=== PATIENT | male | born 1970 | race Caucasian/White ===

== ENCOUNTER 2022-12-19 10:17 | Outpatient (CLI) | payer OTHER, SELFPAY ==
--- NOTE | 2022-12-21 12:29 | WPDHOLTEREM ---
Holter/Event Monitor Holter/Event Monitor Date of procedure: 12/19/22 Holter/Event Procedure: 24 Hr Holter Monitor Indications: Palpitations Conclusion: 1. 24 hour holter monitor on 12/19/22. 2. Underlying rhythm is sinus rhythm. HR range 51-124 bpm; average HR 73 bpm. 3. There are 6,622 premature supraventricular complexes, 7 supraventricular couplets, 139 supraventricular trigeminy. No supraventricular tachycardia. 4. There are 27 premature ventricular complexes and 3 ventricular trigeminy. No ventricular tachycardia. 5. No sinoatrial or atrioventricular blocks. No significant pauses greater than 2 seconds. 6. Patient reports symptoms of pounding heart which demonstrates sinus rhythm, HR range 65-110 bpm with 3 out of 5 times with PAC's.
== END 2022-12-19 10:18 | disposition home or self-care (01) ==
LOC: ANHLAB 10:19
PROVIDERS: Visit Provider Nurse Practitioner Family
DX: R00.2 Palpitations (principal)
CPT/HCPCS: 93225; 93226

== ENCOUNTER 2025-03-19 09:36 | Outpatient (CLI) | payer OTHER, SELFPAY ==
--- NOTE | ~2025-03-19 | MR_ITS ---
EXAMINATION: MR ankle LT wo con DATE: 03/19/2025 10:11 INDICATION: Left ankle pain TECHNIQUE: Magnetic resonance imaging (MRI) of the left ankle was performed without intravenous contrast. Sequences included sagittal, coronal, and axial proton-density weighted fast spin echo without and with fat saturation. COMPARISON: None. FINDINGS: Medial ankle ligaments: There are small heterotopic ossicles within the deep deltoid ligament consistent with sequela of chronic sprain. The superficial deltoid ligament is normal. There is mild thickening and increased signal of the proximal aspect of the superomedial component of the spring ligament complex consistent with scarring related to chronic sprain.. Lateral ankle ligaments: The anterior and posterior inferior tibiofibular ligaments are normal. Thickening and mild increased signal of the anterior talofibular ligament and attenuation of the calcaneofibular ligament consistent with sequela of chronic sprains. Posterior talofibular ligament is normal. Tendons: Achilles tendon is normal. Moderate amount fluid extending along the peroneal tendon sheath consistent with mild tenosynovitis. The peroneus brevis tendon is normal. Mild fusiform thickening and mild increased signal of the peroneus longus tendon consistent with mild tendinopathy without definitive tear. The tibialis anterior and extensor hallucis longus and extensor digitorum longus tendons are normal. The tibialis posterior, flexor digitorum longus and flexor hallucis longus tendons are normal. Plantar fascia: Plantar aponeurosis is normal. Bones/other: Bone alignment is normal. No fracture. Mild to moderate osteoarthritis and focal high-grade chondromalacia at the left ankle joint with deep chondral ulceration and underlying subarticular edema-like signal change along the anterior margin of the tibial plafond and and along the lateral rim of the talar dome. Minimal to mild osteoarthritis at many of the remaining joints in the mid and hindfoot. Fluid: Small ankle and subtalar joint effusions. IMPRESSION: 1. 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 2. Stigmata of chronic medial and lateral ankle sprains including heterotopic opacification at the deep deltoid ligament and scarring of the superomedial component of the spring ligament complex and the anterior talofibular and calcaneofibular ligaments. 3. Mild peroneal tenosynovitis with mild tendinopathy without tear of the peroneus longus tendon. Reviewed, dictated and finalized at location A. IMPRESSION: 1. 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 2. Stigmata of chronic medial and lateral ankle sprains including heterotopic o pacification at the deep deltoid ligament and scarring of the superomedial comp onent of the spring ligament complex and the anterior talofibular and calcaneof ibular ligaments. 3. Mild peroneal tenosynovitis with mild tendinopathy without tear of the peron eus longus tendon.
== END 2025-03-19 09:37 | disposition home or self-care (01) ==
LOC: GOSHIMG 09:37
PROVIDERS: PCP Orthopaedic Surgery; Visit Provider Orthopaedic Surgery
DX: M19.072 Primary osteoarthritis, left ankle and foot (principal); M94.272 Chondromalacia, left ankle and joints of left foot; S93.402A Sprain of unspecified ligament of left ankle, initial encounter; M65.972 Unspecified synovitis and tenosynovitis, left ankle and foot
CPT/HCPCS: 73721